=== PATIENT | male | born 1965 | race Caucasian/White ===

== ENCOUNTER 2019-04-11 11:05 | Emergency (ER) | payer BC ==
[2019-04-11 13:22] VITALS: BP 142/77
--- NOTE | 2019-05-01 22:10 | UC ---
Lower Extremity/Ankle HPI - HPI Summary HPI Summary: 53 year old male with no PMH presents with left 5th toe injury, On tuesday slid into table leg, noted toe to be swollen, red, bruised. no improvement. + ambulatory. would like X-ray to eval for fracture. + paul taping - History of Current Complaint Chief Complaint: UCLowerExtremity Stated Complaint: TOE INJURY Time Seen by Provider: 04/11/19 12:26 Hx Obtained From: Patient Onset/Duration: Sudden Onset, Lasting Days Severity Initially: Moderate Severity Currently: Moderate Pain Intensity: 3 Pain Scale Used: 0-10 Numeric Able to Bear Weight: Yes - Allergies/Home Medications Allergies/Adverse Reactions: Allergies Allergy/AdvReac Type Severity Reaction Status Date / Time LOBSTER Allergy Difficulty Uncoded 04/11/19 11:15 Swallowing SHRIMP Allergy Difficulty Uncoded 04/11/19 11:15 Swallowing Home Medications: Home Medications Escitalopram Oxalate [Lexapro] 20 mg PO DAILY WITH MEAL 04/11/19 [History Confirmed 04/11/19] Quetiapine Fumarate [Seroquel 200 MG] 200 mg PO DAILY WITH MEAL 04/11/19 [ History Confirmed 04/11/19] PMH/Surg Hx/FS Hx/Imm Hx Previously Healthy: Yes - Surgical History Surgical History: Yes Surgery Procedure, Year, and Place: CSP - FUSION - SCREWS & PLATE - Family History Known Family History: Positive: Non-Contributory - Social History Occupation: Employed Full-time Alcohol Use: Rare Substance Use Type: None Smoking Status (MU): Current Every Day Smoker Review of Systems All Other Systems Reviewed And Are Negative: Yes Constitutional: Negative: Fever Musculoskeletal: Positive: Arthralgia, Decreased ROM, Edema, Myalgia Neurological: Positive: Negative Is Patient Immunocompromised?: No Physical Exam Triage Information Reviewed: Yes Appearance: Well-Appearing, No Pain Distress, Well-Nourished Vital Signs: Initial Vital Signs Temp 97.7 F 04/11/19 11:12 Pulse 91 04/11/19 11:12 Resp 18 04/11/19 11:12 BP 145/95 04/11/19 11:12 Pulse Ox 99 04/11/19 11:12 Vital Signs Reviewed: Yes Eyes: Positive: Conjunctiva Clear ENT: Positive: Hearing grossly normal Musculoskeletal: Positive: Strength Intact, ROM Intact, Edema @ - 5th toe left with mild edema, violacious ecchymosis surrounding Neurological: Positive: Alert, Other: - SITLT L foot Psychological: Positive: Normal Response To Family Skin: Positive: Other - no open wounds or sores Lower Extremity Course/Dx - Course Course Of Treatment: X-ray- proximal phalanx fracture, non-disp. 5th toe L - Paul tape toe as shown for 4 week - Hard heeled shoe at all times for next 2-3 week to increase healing. - ice, elevate as much as possible - Motrin/ Tylenol as needed for pain - Follow up with orthopedics within 1-2 weeks for repeat X-ray - Differential Dx/Diagnosis Differential Diagnosis/HQI/PQRI: Contusion, Dislocation, Fracture (Open), Osteomyelitis, Sprain, Strain Provider Diagnosis: Fracture of phalanx of left foot, closed Discharge ED - Sign-Out/Discharge Documenting (check all that apply): Patient Departure All imaging exams completed and their final reports reviewed: No Studies - Discharge Plan Condition: Good Disposition: HOME Patient Education Materials: Toe Fracture (ED) Referrals: Khanh Galvin MD [Medical Doctor] - Sundeep Romero MD [Primary Care Provider] - Additional Instructions: - Paul tape toe as shown for 4 week - Hard heeled shoe at all times for next 2-3 week to increase healing. - ice, elevate as much as possible - Motrin/ Tylenol as needed for pain - Follow up with orthopedics within 1-2 weeks for repeat X-ray - Billing Disposition and Condition Condition: GOOD Disposition: Home
== END 2019-04-11 13:17 | disposition home or self-care (01) ==
LOC: UCEAST 11:05
DX: S92.415A Nondisplaced fracture of proximal phalanx of left great toe, initial encounter for closed fracture (principal); W22.8XXA Striking against or struck by other objects, initial encounter; Y92.9 Unspecified place or not applicable; Z91.013 Allergy to seafood; F17.200 Nicotine dependence, unspecified, uncomplicated
CPT/HCPCS: 99201; G0463